=== PATIENT | male | born 1980 | race Caucasian/White ===

== ENCOUNTER 2020-04-17 14:18 | Emergency (ER) | payer SELFPAY ==
[2020-04-17 14:19] VITALS: BP 160/98; PULSE 87; RESP 16; TEMP 36.9; O2SAT 98; BMI 47.0
--- NOTE | 2020-04-17 15:02 | HMH.EDBACK ---
ED Disposition Clinical Impression: Back pain Qualifiers: Back pain location: low back pain Chronicity: acute Back pain laterality: bilateral Sciatica presence: without sciatica Qualified Code(s): M54.5 - Low back pain Disposition: Home, Self-Care Condition on Discharge: Good Instructions: DI for Low Back Pain Prescriptions: Naproxen Sodium [Naproxen 220mg Tab] 220 mg PO TID 10 Days #20 tab Naproxen Sodium [Naproxen 220mg Tab] 220 mg PO TID 10 Days #20 tab [facility]: [facility] methocarbamoL [Robaxin 750mg Tab] 750 mg PO TID PRN 5 Days #15 tab PRN Reason: Mild To Moderate Pain methocarbamoL [Robaxin 750mg Tab] 750 mg PO TID PRN 5 Days #15 tab PRN Reason: Mild Pain Transmission Status: Pending to [facility] Referrals: PCP,No [Primary Care Provider] - - Critical Care Critical Care Time: No Attestation: On 04/17/20, the high probability of a clinically significant, sudden or life threatening deterioration of the following system(s) required my full and direct attention, intervention and personal management. The time I documented below is in addition to time spent performing reported procedures but includes the following listed in this critical care notation. Medical Decision Making - Medical Records Medical records reviewed: Yes: I reviewed the patient's medical records. - Derrick Inquiry Pt receiving controlled substance: No Vital Signs: 04/17/20 14:19 Temperature 98.5 F Temperature Source Oral Pulse Rate [Right] 87 Respiratory Rate 16 Blood Pressure [Right Arm] 160/98 H Blood Pressure Mean [Right Arm] 118 Blood Pressure Source [Right Arm] Automatic Cuff Blood Pressure Position [Right Arm] Sitting 02 Sat by Pulse Oximetry 98 Oxygen Delivery Method Room Air Orders (Tests/Meds): ED MEDICATIONS Generic Name Dose Route Start Last Admin Trade Name Freq PRN Reason Stop Dose Admin Methocarbamol 1,000 mg 04/17/20 21:00 04/17/20 15:08 Methocarbamol 500mg Tablet PO 05/17/20 20:59 1,000 mg BID ALBERTO Administration Discontinued Medications Generic Name Dose Route Start Last Admin Trade Name Freq PRN Reason Stop Dose Admin Ketorolac Tromethamine 60 mg 04/17/20 14:29 04/17/20 15:08 Ketorolac 60mg/2ml Vial IM 04/17/20 14:30 60 mg ONCE ONE Administration Lidocaine 1 each 04/17/20 14:30 04/17/20 15:08 Lidocaine 5% Transdermal Patch TP 04/17/20 14:31 1 each ONCE ONE Administration Medical Decision Narrative: 39-year-old male presents with acute on chronic back pain. No concern for cauda equina syndrome, metastasis, infectious epidural abscess or traumatic injury. Neurological exam intact. No indication for x-ray per ACEP guidelines. Given Toradol, Robaxin, lidocaine patch and plan to discharge pending work-up with outpatient referral for primary care physician recommendation for physical therapy Back Pain HPI - General Chief Complaint: Back Pain/Injury Stated Complaint: back pain, old injury Time Seen by Provider: 04/17/20 14:20 Mode of Arrival: Ambulatory Limitations: No Limitations Description of Symptoms (Recalled from ER Triage Doc. by RN): PT advises he injuried his back about a year ago and has problems with bulging discs and herniated discs. woke up this am with pain in his lower back - History of Present Illness HPI Narrative: 39-year-old male with history of chronic back pain presents with worsening pain today when he tried to stand up and felt pain in his lower back. He says he has L5-S1 disc. The pain is constant nonradiating dull in nature. No numbness weakness or tingling in lower extremities and no urinary or bowel incontinence. No fever or chills. No chest pain abdominal pain headache or vomiting MD Complaint: back pain Duration: constant Location: lumbar spine Quality: dull - Related Data Previous Rx's Medication Instructions Recorded Naproxen Sodium [Naproxen 220mg 220 mg PO TID 10 Days #
[2020-04-17 15:29] VITALS: BP 180/87; PULSE 97; RESP 16; TEMP 36.9; O2SAT 98
== END 2020-04-17 15:31 | disposition home or self-care (01) ==
PROVIDERS: Emergency Provider Emergency Medicine
DX: M54.5 Low back pain (principal)
CPT/HCPCS: 96372; 99281

== ENCOUNTER 2020-04-25 21:34 | Emergency (ER) | payer OTHER, SELFPAY ==
[2020-04-25 21:44] VITALS: BP 155/94; PULSE 77; RESP 17; TEMP 36.6; O2SAT 99; BMI 43.0
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
--- NOTE | 2020-04-25 22:19 | HMH.EDLOEX ---
ED Disposition Clinical Impression: Knee internal derangement Qualifiers: Laterality: right Qualified Code(s): M23.91 - Unspecified internal derangement of right knee Disposition: Home, Self-Care Condition on Discharge: Good Instructions: DI for Knee Pain Additional Instructions: ice and nsaif and call pcp and ortho for follow up Referrals: PCP,No [Primary Care Provider] - Silas Castle MD [Staff Physician] - - Critical Care Critical Care Time: No Attestation: On 04/25/20, the high probability of a clinically significant, sudden or life threatening deterioration of the following system(s) required my full and direct attention, intervention and personal management. The time I documented below is in addition to time spent performing reported procedures but includes the following listed in this critical care notation. Medical Decision Making - Medical Records Medical records reviewed: Yes: I reviewed the patient's medical records. - Derrick Inquiry Pt receiving controlled substance: No Vital Signs: 04/25/20 21:44 Temperature 97.8 F Temperature Source Oral Pulse Rate [Right Brachial] 77 Respiratory Rate 17 Blood Pressure [Right Arm] 155/94 H Blood Pressure Mean [Right Arm] 114 Blood Pressure Source [Right Arm] Automatic Cuff Blood Pressure Position [Right Arm] Sitting 02 Sat by Pulse Oximetry 99 Oxygen Delivery Method Room Air Orders (Tests/Meds): ORDERS Category Date Time Status Knee XR right 3 views [XR knee RT 3V] Stat Exams 04/25/20 21:52 Ordered - Radiology Data #1 Image(s): Knee Image Reviewed: Yes I reviewed the patient's radiology image Preliminary Findings: No Fracture Seen Medical Decision Narrative: prob internal knee injury as he has sig finding and will refer to ortho Lower Extremity Injury HPI - General Chief Complaint: Extremity Injury, Lower Stated Complaint: injured R knee Time Seen by Provider: 04/25/20 22:00 Mode of Arrival: Family Vehicle Source of Information: Patient, Medical Record Limitations: No Limitations Description of Symptoms (Recalled from ER Triage Doc. by RN): right knee injury yesterday while walking down steps. states he felt a pop . didn't fall - History of Present Illness HPI Narrative: acute injury to rt knee yesterday as he was walking down steps with pop and medial post pain with wt bearing and movement complaint: knee injury Onset (ago): day(s) Injury: Right: knee Type of Injury: eversion Place: home Severity: moderate Context: walking Associated symptoms: snap/pop sensation Other symptoms: none - Related Data Previous Rx's Medication Instructions Recorded Naproxen Sodium [Naproxen 220mg 220 mg PO TID 10 Days #20 tab 04/17/20 Tab] Naproxen Sodium [Naproxen 220mg 220 mg PO TID 10 Days #20 tab 04/17/20 Tab] methocarbamoL [Robaxin 750mg Tab] 750 mg PO TID PRN 5 Days #15 tab 04/17/20 methocarbamoL [Robaxin 750mg Tab] 750 mg PO TID PRN 5 Days #15 tab 04/17/20 Allergies Allergy/AdvReac Type Severity Reaction Status Date / Time No Known Allergies Allergy Verified 04/17/20 15:00 [facility] History - Hepatitis A Screen Drug use history?: No High risk sexual behaviors?: No History of sexually transmitted infection?: No Currently employed?: No Childcare worker?: No Do you have indoor plumbing?: Yes Do you have electricity?: Yes Attestation statement:: This patient has been screened for Hepatitis A risk factors. I have reviewed the patient's past medical history: Yes ROS Obtained: Yes All systems reviewed & no additional complaints - Constitutional Constitutional: Denies fever(s) - Eyes Eyes: Denies change in vision - ENT Ears, Nose, Mouth, and Throat: Denies sore throat - Cardiovascular Cardiovascular: Denies chest pain - Respiratory Respiratory: Denies cough - Gastrointestinal Gastrointestingal: Denies: abdominal pain - Genitourinary Male Genitourinary: Denies hematuria - Muscu
[2020-04-25 22:36] VITALS: BP 131/75; PULSE 75; RESP 16; TEMP 36.7; O2SAT 98
== END 2020-04-25 22:40 | disposition home or self-care (01) ==
PROVIDERS: Emergency Provider Emergency Medicine
DX: M23.91 Unspecified internal derangement of right knee (principal); X50.1XXA Overexertion from prolonged static or awkward postures, initial encounter
CPT/HCPCS: 73562; 99283

== ENCOUNTER 2020-10-31 19:41 | Emergency (ER) | payer OTHER, SELFPAY ==
[2020-10-31 19:48] VITALS: BP 143/90; PULSE 89; RESP 16; TEMP 36.7; O2SAT 99; BMI 40.8
[2020-10-31 20:47] VITALS: BP 145/93; PULSE 74; RESP 20; TEMP 37.1; O2SAT 97; BMI 40.8
--- NOTE | 2020-10-31 21:17 | HMH.EDUTC ---
[facility] [place] Disposition Clinical Impression: Low back pain Qualifiers: Chronicity: unspecified Back pain laterality: right Sciatica presence: with sciatica Sciatica laterality: sciatica of right side Qualified Code(s): M54.41 - Lumbago with sciatica, right side Radiculopathy Qualifiers: Spinal region: unspecified Qualified Code(s): M54.10 - Radiculopathy, site unspecified Disposition: Home, Self-Care Condition on Discharge: Good Instructions: Low Back Pain, DI for Low Back Pain Additional Instructions: Go home and rest. It would be best if you rested tomorrow too. No heavy lifting. No twisting. Take the oral medications as directed. The muscle relaxer (cyclobenzaprine) will make you drowsy, so don't drive or operate heavy machinery after taking it. Don't start the oral steroids (medrol dose pack) until tomorrow, since you had the shots in here today. Follow up with your regular doctor. GO TO THE ER FOR ANY WORSENING SYMPTOMS OR CONCERN, ESPECIALLY BOWEL OR BLADDER ISSUES, SADDLE AREA NUMBNESS, FEVER, ETC Prescriptions: Cyclobenzaprine HCl [Cyclobenzaprine 10mg Tab] 10 mg PO BIDP PRN #20 tab PRN Reason: Muscle Spasm Transmission Status: Received by [facility] methylPREDNISolone [Medrol] 4 mg PO DIRECTED 6 Days #21 tab.ds.pk Transmission Status: Received by [facility] Referrals: Provider,Referral, [Primary Care Provider] - Forms: Work/School Release Time of Disposition: 21:30 Medical Decision Making - Medical Records Medical records reviewed: No: I reviewed the patient's medical records. - Derrick Inquiry Pt receiving controlled substance: No Vital Signs: 10/31/20 19:48 10/31/20 20:47 10/31/20 21:32 Temperature 98.1 F 98.8 F 98.8 F Temperature Source Oral Oral Pulse Rate 74 Pulse Rate [Right] 89 74 Respiratory Rate 16 20 20 Blood Pressure 145/93 H Blood Pressure [Right Arm] 143/90 H 145/93 H Blood Pressure Mean [Right Arm] 107 110 Blood Pressure Source [Right Arm] Automatic Cuff Blood Pressure Position [Right Arm] Sitting 02 Sat by Pulse Oximetry 99 97 Oxygen Delivery Method Room Air Room Air Orders (Tests/Meds): ED MEDICATIONS Discontinued Medications Generic Name Dose Route Start Last Admin Trade Name Saravanan PRN Reason Stop Dose Admin Ketorolac Tromethamine 60 mg 10/31/20 21:17 10/31/20 21:23 Ketorolac 60mg/2ml Vial IM 10/31/20 21:18 60 mg ONCE ONE Administration Methylprednisolone Sodium Succinate 125 mg 10/31/20 21:17 10/31/20 21:23 Methylprednisolone Sod Succ 125mg Vial IM 10/31/20 21:18 125 mg ONCE ONE Administration [facility] [place] HPI - General Stated complaint: back pain Time Seen by Provider: 10/31/20 20:45 Mode of Arrival: Ambulatory Source of Information: Patient Limitations: No Limitations Description of Symptoms (Recalled from Triage Doc. by RN): c/o lower back back pain, states he woke up and it was hurting. Hx of disc issues. Denies any injury HEENT Symptoms (Recalled from RN notes): No Resp Symptoms (Recalled from RN notes): No Skin Symptoms (Recalled from RN notes): No MS Symptoms (Recalled from RN notes): Yes Functional Status (Recalled from RN notes): wnl - History of Present Illness Provider Complaint: He c/o low back pain that radiates down his right leg. His pain began about 3 hours ago. He denies any recent injuries, falls, or mva. He does have episodes of this same type of pain at times. He came in to see about getting some shots to get it start feeling better. - Related Data Previous Rx's Medication Instructions Recorded Naproxen Sodium [Naproxen 220mg 220 mg PO TID 10 Days #20 tab 04/17/20 Tab] Naproxen Sodium [Naproxen 220mg 220 mg PO TID 10 Days #20 tab 04/17/20 Tab] methocarbamoL [Robaxin 750mg Tab] 750 mg PO TID PRN 5 Days #15 tab 04/17/20 methocarbamoL [Robaxin 750mg Tab] 750 mg PO TID PRN 5 Days #15 tab 04/17/20 Cyclobenzaprine HCl 10 mg PO BIDP PRN #20 tab 10/31/20 [C
[2020-10-31 21:32] VITALS: BP 145/93; PULSE 74; RESP 20; TEMP 37.1; O2SAT 97
== END 2020-10-31 21:36 | disposition home or self-care (01) ==
PROVIDERS: Emergency Provider Nurse Practitioner Family
DX: M54.41 Lumbago with sciatica, right side (principal)
CPT/HCPCS: 96372; 99202; G0463

== ENCOUNTER 2020-12-28 22:13 | Emergency (ER) | payer OTHER, SELFPAY ==
[2020-12-28 22:23] VITALS: BP 204/100; PULSE 105; RESP 18; O2SAT 98; BMI 40.1
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
[2020-12-28 23:38] VITALS: BP 163/84; PULSE 89; RESP 18; TEMP 36.8
== END 2020-12-28 23:40 | disposition home or self-care (01) ==
PROVIDERS: Emergency Provider Emergency Medicine
DX: M54.16 Radiculopathy, lumbar region (principal)
CPT/HCPCS: 99281

== ENCOUNTER → 2021-01-10 14:13 | Outpatient (CLI) | payer OTHER, SELFPAY ==
[2021-01-10 14:21] LABS: Basophils # 0.1 K/mm3 (0-0.2); Basophils % 1.6 % (0.1-2.0); Eosinophils # 0.2 K/mm3 (0.0-0.4); Eosinophils % 2.5 % (0.1-12.0); Hematocrit 51.6 % (42.0-52.0); Hemoglobin 16.8 g/dL (14.1-18.0); Lymphocytes # 1.2 K/mm3 (0.7-4.5); Lymphocytes % 17.2 % (10-50); Mean Corpuscular HGB Conc 32.6 g/dL (31.8-35.4); Mean Corpuscular Volume 92.2 fl (80-94); Mean Platelet Volume 9.3 fl (7.4-10.4); Monocytes # 1.2 K/mm3 (0.1-1.0); Monocytes % 18.2 % (1.7-9.3); Neutrophils # 4.1 K/mm3 (1.8-7.8); Neutrophils % 60.5 % (37.0-80.0); Platelet Count 241 K/mm3 (142-424); Red Blood Count 5.59 M/mm3 (4.60-6.20); Red Cell Distribution Width 13.8 % (11.5-17.5); White Blood Count 6.8 K/mm3 (4.8-10.8)
[2021-01-10 14:28] LABS: Alanine Aminotransferase 78 U/L (12-78); Albumin Level 4.3 g/dl (3.5-5.0); Albumin/Globulin Ratio 1.4 (1.1-1.8); Alkaline Phosphatase 75 U/L (38-126); Anion Gap 11.1 mEq/L (5-15); Aspartate Amino Transferase 60 U/L (17-59); Bilirubin,Total 0.3 mg/dl (0.2-1.3); Blood Urea Nitrogen 16 mg/dl (9-20); Calcium 9.6 mg/dl (8.4-10.2); Carbon Dioxide 29 mmol/L (22.0-30.0); Chloride 102 mmol/L (98-107); Chol/HDL Ratio 4.5 (1-3.5); Cholesterol 194 mg/dl (140-200); Estimated Glomerular Filt Rate 84 ml/min (>60); GFR (African American) 101 ML/MIN (>60); Globulin 3.1 g/dL (1.3-3.2); Glucose 87 mg/dl (74-100); HDL Cholesterol 43 mg/dl (40-60); Potassium 4.1 mmoL/L (3.5-5.1); Sodium 138 mmol/L (136-145); Total Protein,Serum 7.4 g/dl (6.3-8.2); Triglycerides 170 mg/dl (30-150); VLDL Cholesterol 34 mg/dL (0-40)
[2021-01-10 14:40] LABS: Direct LDL Cholesterol 115.54 mg/dL (100-129)
[2021-01-10 14:46] LABS: T4 (Thyroxine) 8.6 ug/dl (5.53-11.0)
[2021-01-10 14:47] LABS: Hemoglobin A1C 5.6 % (4.0-6.0)
== END ==
PROVIDERS: Visit Provider Nurse Practitioner Family
DX: E11.9 Type 2 diabetes mellitus without complications (principal); B19.20 Unspecified viral hepatitis C without hepatic coma; Z11.4 Encounter for screening for human immunodeficiency virus [HIV]; R74.8 Abnormal levels of other serum enzymes
CPT/HCPCS: 80053; 80061; 83036; 84436; 84443; 85025

== ENCOUNTER 2021-01-15 12:11 | Emergency (ER) | payer OTHER, SELFPAY ==
[2021-01-15 12:12] VITALS: BP 131/95; PULSE 92; RESP 20; TEMP 36.6; O2SAT 97; BMI 38.7
--- NOTE | 2021-01-15 12:36 | CT_ITS ---
PROCEDURE INFORMATION: Exam: CT Abdomen And Pelvis With Contrast Exam date and time: 01/15/2021 12:36 PM Age: 40 years old Clinical indication: Abdominal pain; Acute; Prior surgery; Surgery date: 6+ months; Surgery type: Gb; Additional info: Diarrhea, blood in stool TECHNIQUE: Imaging protocol: Computed tomography of the abdomen and pelvis with contrast. Radiation optimization: All CT scans at this facility use at least one of these dose optimization techniques: automated exposure control; mA and/or kV adjustment per patient size (includes targeted exams where dose is matched to clinical indication); or iterative reconstruction. Contrast material: ISOVUE; Contrast volume: 75 ml; Contrast route: IV; COMPARISON: No relevant prior studies available. FINDINGS: Lungs: Minimal opacities in the right middle lobe and right lower lobe may represent atelectasis or pneumonia.. Liver: Normal. No mass. Gallbladder and bile ducts: Cholecystectomy Pancreas: Normal. No ductal dilation. Spleen: Normal. No splenomegaly. Adrenal glands: Normal. No mass. Kidneys and ureters: There is no evidence of renal or ureteral calcifications. Stomach and bowel: Unremarkable. No obstruction. No mucosal thickening. Appendix: Normal appendix Intraperitoneal space: Unremarkable. No free air. No significant fluid collection. Vasculature: Unremarkable. No abdominal aortic aneurysm. Lymph nodes: Unremarkable. No enlarged lymph nodes. Urinary bladder: Unremarkable as visualized. Reproductive: Unremarkable as visualized. Bones/joints: Unremarkable. No acute fracture. Soft tissues: Unremarkable. IMPRESSION: Minimal opacities in the right middle lobe and right lower lobe may represent atelectasis or pneumonia..
[2021-01-15 12:50] LABS: Basophils # 0.1 K/mm3 (0-0.2); Basophils % 1.1 % (0.1-2.0); Eosinophils # 0.1 K/mm3 (0.0-0.4); Eosinophils % 1.2 % (0.1-12.0); Hematocrit 54.4 % (42.0-52.0); Lymphocytes # 1.7 K/mm3 (0.7-4.5); Lymphocytes % 18.7 % (10-50); Mean Corpuscular HGB Conc 33.5 g/dL (31.8-35.4); Mean Corpuscular Hemoglobin 30.1 pg (27.0-31.2); Mean Platelet Volume 8.7 fl (7.4-10.4); Monocytes # 0.5 K/mm3 (0.1-1.0); Monocytes % 4.9 % (1.7-9.3); Neutrophils # 6.9 K/mm3 (1.8-7.8); Neutrophils % 74.2 % (37.0-80.0); Platelet Count 201 K/mm3 (142-424); Red Blood Count 6.04 M/mm3 (4.60-6.20); Red Cell Distribution Width 13.5 % (11.5-17.5); White Blood Count 9.3 K/mm3 (4.8-10.8)
[2021-01-15 12:54] LABS: Alanine Aminotransferase 90 U/L (12-78); Albumin Level 4.6 g/dl (3.5-5.0); Albumin/Globulin Ratio 1.2 (1.1-1.8); Alkaline Phosphatase 77 U/L (38-126); Anion Gap 11.3 mEq/L (5-15); Aspartate Amino Transferase 47 U/L (17-59); Bilirubin,Total 0.6 mg/dl (0.2-1.3); Blood Urea Nitrogen 5 mg/dl (9-20); Calcium 9.3 mg/dl (8.4-10.2); Carbon Dioxide 29 mmol/L (22.0-30.0); Chloride 103 mmol/L (98-107); Creatinine Clearance Estimated 217 mL/min (50-200); Estimated Glomerular Filt Rate 108 ml/min (>60); GFR (African American) 131 ML/MIN (>60); Globulin 3.7 g/dL (1.3-3.2); Glucose 140 mg/dl (74-100); Lipase 116 U/L (23-300); Potassium 4.3 mmoL/L (3.5-5.1); Sodium 139 mmol/L (136-145); Total Protein,Serum 8.3 g/dl (6.3-8.2)
[2021-01-15 13:01] LABS: Hemoglobin 18.3 g/dL (14.1-18.0)
--- NOTE | 2021-01-15 13:05 | HMH.EDGENADL ---
ED Disposition Clinical Impression: External hemorrhoid, bleeding Disposition: Home Health Service Condition on Discharge: Good Instructions: DI for Hemorrhoids Prescriptions: Hydrocortisone [Anusol-Hc] 1 applicatio TP BID #30 gm Transmission Status: Pending to [facility] Referrals: Jacinto Mota MD [Primary Care Provider] - - Critical Care Critical Care Time: No Attestation: On 01/15/21, the high probability of a clinically significant, sudden or life threatening deterioration of the following system(s) required my full and direct attention, intervention and personal management. The time I documented below is in addition to time spent performing reported procedures but includes the following listed in this critical care notation. Medical Decision Making - Medical Records Medical records reviewed: Yes: I reviewed the patient's medical records. - Derrick Inquiry Pt receiving controlled substance: No Vital Signs: 01/15/21 12:12 Temperature 97.9 F Temperature Source Oral Pulse Rate [Left Radial] 92 H Respiratory Rate 20 Blood Pressure [Right Arm] 131/95 H Blood Pressure Mean [Right Arm] 107 Blood Pressure Source [Right Arm] Automatic Cuff Blood Pressure Position [Right Arm] Sitting 02 Sat by Pulse Oximetry 97 Oxygen Delivery Method Room Air - Lab Data Lab Results 01/15/21 12:39: WBC 9.3, RBC 6.04, Hgb 18.3 H, Hct 54.4 H, MCV 90.0, MCH 30.1, MCHC 33.5, RDW 13.5, Plt Count 201, MPV 8.7, Neut % (Auto) 74.2, Lymph % (Auto) 18.7, Weld % (Auto) 4.9, Eos % (Auto) 1.2, Baso % (Auto) 1.1, Neut # (Auto) 6.9, Lymph # (Auto) 1.7, Weld # (Auto) 0.5, Eos # (Auto) 0.1, Baso # (Auto) 0.1 01/15/21 12:39: Sodium 139, Potassium 4.3, Chloride 103, Carbon Dioxide 29, Anion Gap 11.3, BUN 5 L, Creatinine 0.80, Estimated Creat Clear 217, Estimated GFR 108, Est GFR ( Amer) 131, Glucose 140 H, Calcium 9.3, Total Bilirubin 0.6, AST 47, ALT 90 H, Alkaline Phosphatase 77, Total Protein 8.3 H, Albumin 4.6, Globulin 3.7 H, Albumin/Globulin Ratio 1.2, Lipase 116 Result diagrams: 01/15/21 12:39 01/15/21 12:39 Orders (Tests/Meds): ED MEDICATIONS Discontinued Medications Generic Name Dose Route Start Last Admin Trade Name Marioq PRN Reason Stop Dose Admin Sodium Chloride 1,000 mls @ 999 mls/hr 01/15/21 12:45 01/15/21 12:43 Sod Chlor 0.9% 1000ml Bag IV 01/15/21 13:45 999 mls/hr .Q1H1M ALBERTO Administration Iopamidol 75 ml 01/15/21 13:20 01/15/21 13:21 Iopamidol-370 (76%);100ml Bottle IV 01/15/21 13:21 75 ml ONCE ONE Administration Ondansetron HCl 4 mg 01/15/21 12:37 01/15/21 12:43 Ondansetron 4mg/2ml Vial IV 01/15/21 12:38 4 mg ONCE ONE Administration Sodium Chloride 10 ml 01/15/21 13:20 01/15/21 13:21 Sodium Chloride 0.9% 10ml Syr (Rad Only) IV 01/15/21 13:21 10 ml ONCE ONE Administration - CT Data CT Scan: Abdomen, Pelvis Time Received: 14:[address] Reviewed: Yes: I have reviewed the patient's CT results, I have viewed the radiologist's interpretation Preliminary Findings: Normal/NAD - Reevaluation(s) Time: 14:44 Reevaluation #1: On reevaluation, the patient is feeling better. There is no active bleeding. Patient janusz hemodynamically stable. Hemoglobin normal. CT was unremarkable. Rectal exam did show one small hemorrhoid. Likely causing the patient's symptoms. Patient be given surgery follow-up. Given strict return precautions. Verbalized understanding. Medical Decision Narrative: 40-year-old male presented to the emergency department with some lower back pain and bloody diarrhea. Patient symptoms are concerning for possible inflammatory bowel disease. Patient's abdominal examination is relatively benign. CT will be obtained. General Adult HPI - General Chief complaint: Nausea/Vomiting/Diarrhea Stated complaint: bloody stool Time Seen by Provider: 01/15/21 12:20 Mode of Arrival: Ambulatory Limitations: No Limitations Descriptio
[2021-01-15 14:55] VITALS: BP 141/92; PULSE 63; RESP 20; TEMP 36.6; O2SAT 98
== END 2021-01-15 14:57 | disposition home health service (06) ==
PROVIDERS: Emergency Provider Emergency Medicine; PCP Emergency Medicine
DX: K64.4 Residual hemorrhoidal skin tags (principal)
CPT/HCPCS: 74177; 80053; 83690; 85025; 96365; 96375; 99282; J2405; Q9967

== ENCOUNTER → 2021-01-27 09:47 | Outpatient (CLI) | payer OTHER, SELFPAY | PROVIDERS: PCP Nurse Practitioner Family; Visit Provider Nurse Practitioner Family | DX: G47.33 Obstructive sleep apnea (adult) (pediatric) (principal) | CPT/HCPCS: 95806 ==

== ENCOUNTER → 2021-04-24 08:31 | Outpatient (CLI) | payer OTHER, SELFPAY ==
--- NOTE | 2021-04-24 08:37 | XR_ITS ---
FINAL REPORT CLINICAL HISTORY: RT knee pain COMPARISON: April 25, 2020 FINDINGS: RIGHT KNEE 6 views of the right knee were obtained. There is no acute fracture or dislocation. There are mild degenerative changes. There is a chronic irregularity of the lateral femoral condyle which could represent a chronic osteochondral lesion. IMPRESSION: Chronic irregularity of the lateral femoral condyle, could represent a chronic osteochondral lesion. If indicated, MRI could further evaluate. Reviewed, Interpreted and Dictated by Claudio Cunningham III, MD Transcribed by Jenny Flaherty Authenticated by Claudio Cunningham III, MD on 04/24/2021 09:25:13 AM [facility]
== END ==
PROVIDERS: PCP Nurse Practitioner Family; Visit Provider Orthopaedic Surgery
DX: M25.561 Pain in right knee (principal)
CPT/HCPCS: 73564

== ENCOUNTER → 2021-05-02 10:07 | Outpatient (CLI) | payer OTHER, SELFPAY ==
--- NOTE | 2021-05-02 10:07 | MR_ITS ---
FINAL REPORT CLINICAL HISTORY: evaluate for a meniscal tear FINDINGS: Multi planar MR imaging was performed of the right knee. The anterior cruciate ligament is intact but there is diffuse edema throughout the anterior cruciate ligament. The posterior cruciate ligament is intact. The quadriceps and patellar tendons are intact. There is a full-thickness tear of the posterior horn of the medial meniscus. The lateral meniscus is intact. Small joint effusion is identified. The medial and lateral collateral ligaments appear intact. The medial and lateral retinacula appear intact. There is no evidence of bone marrow edema or osteochondral defect. No evidence of soft tissue inflammatory reaction. IMPRESSION: Edema along the course of the anterior cruciate ligament, possibly due to strain. Full-thickness tear posterior horn medial meniscus. Reviewed, Interpreted and Dictated by Primitivo Perry MD Transcribed by Concetta Caceres Authenticated by Primitivo Perry MD on 05/02/2021 12:57:47 PM [facility]
== END ==
PROVIDERS: PCP Nurse Practitioner Family; Visit Provider Orthopaedic Surgery
DX: M25.561 Pain in right knee (principal); G89.29 Other chronic pain
CPT/HCPCS: 73721

== ENCOUNTER 2021-05-31 10:15 | Emergency (ER) | payer OTHER, SELFPAY ==
[2021-05-31] VITALS (7 sets, daily range): BP systolic 130–156; BP diastolic 74–97; PULSE 72–90; RESP 16; TEMP 36.6–36.8; O2SAT 98; BMI 39.5
[2021-05-31 11:04] LABS: Microscopic, Urine URINE MICROSCOPIC (MICROSCOPIC)
[2021-05-31 11:05] LABS: Basophils % 0.5 % (0.1-2.0); Eosinophils # 0.2 K/mm3 (0.0-0.4); Eosinophils % 2.3 % (0.1-12.0); Hematocrit 52.6 % (42.0-52.0); Lymphocytes # 1.1 K/mm3 (0.7-4.5); Lymphocytes % 13.2 % (10-50); Mean Corpuscular HGB Conc 34.6 g/dL (31.8-35.4); Mean Corpuscular Hemoglobin 29.9 pg (27.0-31.2); Mean Corpuscular Volume 86.4 fl (80-94); Mean Platelet Volume 7.9 fl (7.4-10.4); Monocytes # 0.6 K/mm3 (0.1-1.0); Monocytes % 7.1 % (1.7-9.3); Neutrophils # 6.1 K/mm3 (1.8-7.8); Neutrophils % 76.9 % (37.0-80.0); Platelet Count 204 K/mm3 (142-424); Red Blood Count 6.09 M/mm3 (4.60-6.20); Red Cell Distribution Width 13.6 % (11.5-17.5)
[2021-05-31 11:06] LABS: Chloride 99 mmol/L (98-107); Potassium 3.7 mmoL/L (3.5-5.1); Sodium 132 mmol/L (136-145)
[2021-05-31 11:07] LABS: Hemoglobin 18.2 g/dL (14.1-18.0)
[2021-05-31 11:07] LABS: Occult Blood,Stool Positive (Negative)
[2021-05-31 11:07] LABS: Appearance,Urine SL CLOUDY (Clear); Bilirubin,Urine Negative (Negative); Blood, Urine TRACE-I (Negative); Color,Urine YELLOW (Yellow); Glucose,Urine (UA) Negative (Negative); Ketones,Urine Negative (Negative); Leukocyte Esterase,Urine Negative (Negative); Nitrate,Urine Negative (Negative); Protein,Urine 1+ (Negative); Specific Gravity, Urine >= 1.030 (1.005-1.030); Urobilinogen,Urine 0.2 EU/dl (0.2)
[2021-05-31 11:09] LABS: Alanine Aminotransferase 53 U/L (12-78); Albumin Level 4.7 g/dl (3.5-5.0); Albumin/Globulin Ratio 1.3 (1.1-1.8); Alkaline Phosphatase 83 U/L (38-126); Anion Gap 13.7 mEq/L (5-15); Aspartate Amino Transferase 47 U/L (17-59); Bilirubin,Total 0.6 mg/dl (0.2-1.3); Blood Urea Nitrogen 15 mg/dl (9-20); Calcium 8.5 mg/dl (8.4-10.2); Carbon Dioxide 23 mmol/L (22.0-30.0); Creatinine Clearance Estimated 167 mL/min (50-200); Estimated Glomerular Filt Rate 84 ml/min (>60); GFR (African American) 101 ML/MIN (>60); Globulin 3.5 g/dL (1.3-3.2); Glucose 101 mg/dl (74-100); Lipase 68 U/L (23-300); Total Protein,Serum 8.2 g/dl (6.3-8.2)
[2021-05-31 11:21] LABS: Bacteria,Urine 2+ /lpf; Mucus,Urine 2+ /lpf; RBC,Urine Occasional #/hpf (0-3)
--- NOTE | 2021-05-31 11:22 | HMH.EDGENADL ---
ED Disposition Clinical Impression: Rotavirus enteritis, Rectal bleeding Disposition: Home, Self-Care Condition on Discharge: Good Instructions: DI for Diarrhea and Traveler's Diarrhea -- Adult, DI for Rotavirus -- Adult Additional Instructions: Loperamide as needed for diarrhea. Zofran as needed for nausea and vomiting. Rest and drink plenty of fluids. Off work until Friday. Additional instructions for VOMITING/DIARRHEA: See your physician as soon as possible for further evaluation. Return immediately if severe abdominal pain, uncontrollable vomiting, shortness of breath, fever, vomiting of blood or abdominal distention. Prescriptions: Loperamide HCl [Loperamide] 2 mg PO TIDP PRN #10 tab PRN Reason: Diarrhea [facility] Ondansetron [Zofran 4mg ODT] 4 mg PO TIDP PRN #10 tab PRN Reason: Nausea And Vomiting Transmission Status: Pending to [facility] Referrals: Arsh Gongora APRN [Primary Care Provider] - Forms: Work/School Release - Critical Care Critical Care Time: No Attestation: On 05/31/21, the high probability of a clinically significant, sudden or life threatening deterioration of the following system(s) required my full and direct attention, intervention and personal management. The time I documented below is in addition to time spent performing reported procedures but includes the following listed in this critical care notation. Medical Decision Making - Medical Records Medical records reviewed: Yes: I reviewed the patient's medical records. MR Comment: Reviewed emergency department note from 01/16/2021. Seen for similar symptoms. Work-up unremarkable. Head CT scan performed which was unremarkable. He states he has not followed up with anybody since then and symptoms have not recurred. - Derrick Inquiry Pt receiving controlled substance: No Vital Signs: 05/31/21 10:40 05/31/21 11:30 05/31/21 12:00 Temperature 98.3 F Temperature Source Oral Pulse Rate 81 74 Pulse Rate [Right Radial] 90 Respiratory Rate 16 Blood Pressure 143/96 H 149/92 H Blood Pressure [Right Arm] 147/97 H Blood Pressure Mean 111 103 Blood Pressure Mean [Right Arm] 113 Blood Pressure Source [Right Arm] Automatic Cuff Blood Pressure Position [Right Arm] Sitting 02 Sat by Pulse Oximetry 98 Oxygen Delivery Method Room Air 05/31/21 12:30 05/31/21 13:00 05/31/21 13:30 Temperature Temperature Source Pulse Rate 72 81 Pulse Rate [Right Radial] Respiratory Rate Blood Pressure 148/96 H 156/96 H 153/95 H Blood Pressure [Right Arm] Blood Pressure Mean 113 110 113 Blood Pressure Mean [Right Arm] Blood Pressure Source [Right Arm] Blood Pressure Position [Right Arm] 02 Sat by Pulse Oximetry Oxygen Delivery Method - Lab Data Lab Results 05/31/21 10:50: WBC 8.0, RBC 6.09, Hgb 18.2 H, Hct 52.6 H, MCV 86.4, MCH 29.9, MCHC 34.6, RDW 13.6, Plt Count 204, MPV 7.9, Neut % (Auto) 76.9, Lymph % (Auto) 13.2, [place] % (Auto) 7.1, Eos % (Auto) 2.3, Baso % (Auto) 0.5, Neut # (Auto) 6.1, Lymph # (Auto) 1.1, [place] # (Auto) 0.6, Eos # (Auto) 0.2, Baso # (Auto) 0.0 05/31/21 10:50: Sodium 132 L, Potassium 3.7, Chloride 99, Carbon Dioxide 23, Anion Gap 13.7, BUN 15, Creatinine 1.00, Estimated Creat Clear 167, Estimated GFR 84, Est GFR ( Amer) 101, Glucose 101 H, Calcium 8.5, Total Bilirubin 0.6, AST 47, ALT 53, Alkaline Phosphatase 83, Total Protein 8.2, Albumin 4.7, Globulin 3.5 H, Albumin/Globulin Ratio 1.3, Lipase 68 05/31/21 10:54: Stool Occult Blood Positive A 05/31/21 11:00: Urine Color Yellow, Urine Appearance Sl cloudy, Urine pH 6.0, Ur Specific [place] >= 1.030, Urine Protein 1+, Urine Glucose (UA) Negative, Urine Ketones Negative, Urine Blood Trace-i, Urine Nitrate Negative, Urine Bilirubin Negative, Urine Urobilinogen 0.2, Ur Leukocyte Esterase Negative, Urine RBC Occasional, Urine WBC 5-10, Ur Squamous Epith Cells 3-5, Ur
[2021-05-31 11:48] LABS: Campylobacter Not Detected (NotDetected); Clostridium Difficile A/B, PCR Not Detected (NotDetected)
[2021-05-31 11:49] LABS: Adenovirus F 40/41, stool Not Detected (NotDetected); Astrovirus Not Detected (NotDetected); Cryptosporidium Not Detected (NotDetected); Cyclospora Cayetanesis Not Detected (NotDetected); Entamoeba histolytica Not Detected (NotDetected); Enteroaggregative E coli Not Detected (NotDetected); Enteropathogenic E coli Not Detected (NotDetected); Enterotoxigenic E coli Not Detected (NotDetected); Giardia lamblia Not Detected (NotDetected); Norovirus Not Detected (NotDetected); Plesimonas Shigalloides, PCR Not Detected (NotDetected); Salmonella, PCR Not Detected (NotDetected); Sapovirus Not Detected (NotDetected); Shiga-like toxin E coli Not Detected (NotDetected); Shigella Enterovasive E coli Not Detected (NotDetected); Vibrio Cholerae Not Detected (NotDetected); Vibrio, PCR Not Detected (NotDetected); Yersinia Entercolitica, PCR Not Detected (NotDetected)
[2021-05-31 13:48] LABS: Rotavirus A Detected (NotDetected)
--- NOTE | 2021-05-31 13:52 | PC.NURSE ---
MD at bedside for update on POC
== END 2021-05-31 14:13 | disposition home or self-care (01) ==
PROVIDERS: Emergency Provider Emergency Medicine; PCP Nurse Practitioner Family
DX: A08.0 Rotaviral enteritis (principal); K62.5 Hemorrhage of anus and rectum; K64.9 Unspecified hemorrhoids
CPT/HCPCS: 80053; 81001; 82272; 83690; 85025; 87086; 87506; 96365; 96375; 99283; 99284; G0328

== ENCOUNTER 2021-10-10 16:34 | Emergency (ER) | payer OTHER, SELFPAY ==
[2021-10-10 16:35] VITALS: BP 167/111; PULSE 86; RESP 16; TEMP 36.9; O2SAT 98; BMI 40.6
--- NOTE | 2021-10-10 17:12 | CT_ITS ---
PROCEDURE INFORMATION: Exam: CT Thoracic Spine Without Contrast Exam date and time: 10/10/21 05:16 PM Age: 41 years old Clinical indication: Pain in thoracic spine; Additional info: Back pain, known disc herniation and buldging TECHNIQUE: Imaging protocol: Computed tomography of the thoracic spine without contrast. Radiation optimization: All CT scans at this facility use at least one of these dose optimization techniques: automated exposure control; mA and/or kV adjustment per patient size (includes targeted exams where dose is matched to clinical indication); or iterative reconstruction. COMPARISON: CT ABDOMEN PELVIS W CON 01/15/21 01:16 PM FINDINGS: Bones/joints: Degenerative changes. No acute fracture. Normal alignment. Discs/Spinal canal/Neural foramina: No significant disc protrusion. No severe spinal canal stenosis. No significant neural foraminal narrowing. Soft tissues: Unremarkable. IMPRESSION: Unremarkable CT T-Spine.
--- NOTE | 2021-10-10 17:12 | CT_ITS ---
PROCEDURE INFORMATION: Exam: CT Lumbar Spine Without Contrast Exam date and time: 10/10/21 05:26 PM Age: 41 years old Clinical indication: Low back pain; Additional info: Back pain, known disc herniation and buldging TECHNIQUE: Imaging protocol: Computed tomography of the lumbar spine without contrast. Radiation optimization: All CT scans at this facility use at least one of these dose optimization techniques: automated exposure control; mA and/or kV adjustment per patient size (includes targeted exams where dose is matched to clinical indication); or iterative reconstruction. COMPARISON: CT THORACIC SPINE WO CON 10/10/21 05:16 PM FINDINGS: Bones/joints: No acute fracture. Normal alignment. L1-L2: No significant disc protrusion. No severe spinal canal stenosis. No significant neural foraminal narrowing. L2-L3: No significant disc protrusion. No severe spinal canal stenosis. No significant neural foraminal narrowing. L3-L4: No significant disc protrusion. No severe spinal canal stenosis. No significant neural foraminal narrowing. L4-L5: Large central disc protrusion L4-L5. Moderate spinal canal stenosis. Consider further characterization with lumbar MR imaging. L5-S1: No significant disc protrusion. No severe spinal canal stenosis. No significant neural foraminal narrowing. Soft tissues: Unremarkable. IMPRESSION: 1. Large central disc protrusion L4-L5. 2. Moderate spinal canal stenosis. Consider further characterization with lumbar MR imaging.
--- NOTE | 2021-10-10 17:13 | PC.NURSE ---
Notified rad of CT
--- NOTE | 2021-10-10 17:17 | PC.NURSE ---
pt to radiology via wheelchair with geological technical officer
--- NOTE | 2021-10-10 17:37 | PC.NURSE ---
Pt returned from rad
--- NOTE | 2021-10-10 17:58 | HMH.EDGENADL ---
ED Disposition Clinical Impression: Lumbar disc herniation Disposition: Home, Self-Care Condition on Discharge: Good Instructions: DI for Low Back Pain Additional Instructions: Clif[place] as needed for pain. Prednisone as prescribed. Additional instructions for BACK PAIN: See your physician as soon as possible for further evaluation. Return immediately if back pain becomes intolerable, or if fever, numbness or weakness of your legs, loss of control of your bowels or bladder. Additional instructions regarding BLOOD PRESSURE: One or more of your blood pressure readings elevated today. Please contact your primary care physician for further evaluation or treatment of your blood pressure. Additional instructions for CONTROLLED SUBSTANCES: You have been prescribed a medication that is a controlled substance. Controlled substances include pain medications known as opiates and sedative nerve medications known as benzodiazepines. Tramadol, fioricet, and gabapentin are also controlled substances. Some common opiates include: Codeine (such as Tylenol #3) Hydrocodone (Vicodin, Lortab, Lorcet, Clifton) Oxycodone (Percocet, Percodan, Oxycodone, Oxy IR) Some common benzodiazepines include: Diazepam (Valium) Lorazepam (Ativan) Alprazolam (Xanax) Clonazepam (Klonopin) Oxazepam (Serax) All of these controlled substances are highly addictive and frequently abused. Misuse can and frequently does lead to addiction as well as overdose and . Medication should be stored in a locked cabinet or other secure storage unit. Do not store the medication in a motor vehicle. Short term supplies, 3 days or less, are prescribed because of the highly addictive nature of the medication. Any of the controlled substance medication NOT taken should be disposed of properly and NOT SAVED. The recommended method of disposing of unused medications is: Place the medicines in a sealable plastic bag. If the medicine is a solid, crush it or add water to dissolve it. Add something undesirable (cat litter, coffee grounds, etc.) Dispose of sealed bag in household trash Do not flush or pour unused medicines down a sink or drain. Controlled substances should not be shared, given away or sold. Because of the addictive nature and frequent abuse, these medications are sometimes stolen. These medications should be kept in a safe place where they cannot be stolen. Do not keep them in your car or purse. Lost or stolen prescriptions for controlled substances WILL NOT BE REFILLED in this emergency department, regardless of whether a police report was filed. Prescriptions: Hydrocod/Acet 5/325 mg [Clif[place] 5/325mg tablet] 1 tab PO Q6HP PRN #10 tab PRN Reason: Pain Transmission Status: Sent to [facility] predniSONE [Prednisone 20mg Tab] 20 mg PO BID #10 tab Transmission Status: Pending to [facility] Referrals: Jacinto Mota MD [Primary Care Provider] - - Critical Care Critical Care Time: No Attestation: On 10/10/21, the high probability of a clinically significant, sudden or life threatening deterioration of the following system(s) required my full and direct attention, intervention and personal management. The time I documented below is in addition to time spent performing reported procedures but includes the following listed in this critical care notation. Medical Decision Making - Derrick Inquiry Pt receiving controlled substance: Yes Derrick was queried for this patient: Yes Risks and benefits of using a controlled substance: were discussed with pt by me Vital Signs: 10/10/21 16:35 Temperature 98.4 F Temperature Source Oral Pulse Rate [Right Radial] 86 Respiratory Rate 16 Blood Pressure [Right Arm] 167/111 H Blood Pressure Mean [Right Arm] 129 Blood Pressure Source [Right Arm] Automatic Cuff Blood Pressure Position [Right Arm] Sitting 02 Sat by Pulse Oximetry 98 Oxygen Delivery Method Room
[2021-10-10 18:13] VITALS: BP 156/111; PULSE 79; RESP 17; TEMP 36.8; O2SAT 96
== END 2021-10-10 18:18 | disposition home or self-care (01) ==
PROVIDERS: Emergency Provider Emergency Medicine; PCP Emergency Medicine
DX: M51.26 Other intervertebral disc displacement, lumbar region (principal); I10 Essential (primary) hypertension; Z91.14 Patient's other noncompliance with medication regimen
CPT/HCPCS: 72128; 72131; 96372; 99284

== ENCOUNTER 2022-07-01 04:59 | Emergency (ER) | payer OTHER, SELFPAY ==
[2022-07-01 05:00] VITALS: BP 165/121; PULSE 84; RESP 15; TEMP 36.8; O2SAT 97; BMI 41.5
--- NOTE | 2022-07-01 05:15 | CT_ITS ---
PROCEDURE INFORMATION: Exam: CT Head Without Contrast Exam date and time: 07/01/2022 5:24 AM Age: 41 years old Clinical indication: Numbness / parasthesia; Additional info: Bilateral arm numbness TECHNIQUE: Imaging protocol: Computed tomography of the head without contrast. Radiation optimization: All CT scans at this facility use at least one of these dose optimization techniques: automated exposure control; mA and/or kV adjustment per patient size (includes targeted exams where dose is matched to clinical indication); or iterative reconstruction. REPORTING DATA: Count of CT and Cardiac NM exams in prior 12 months: This patient has received 3 known CTs and 0 known cardiac nuclear medicine studies in the 12 months prior to the current study. COMPARISON: No relevant prior studies available. FINDINGS: Brain: There is a low attenuation region in the left basal ganglia (series 3, image 33) which could be secondary to perivascular space but limits assessment for a subacute or chronic nonhemorrhagic basal ganglia infarction. There is no acute parenchymal hemorrhage or mass effect. Cerebral ventricles: No ventriculomegaly. Paranasal sinuses: Visualized sinuses are unremarkable. No fluid levels. Mastoid air cells: Visualized mastoid air cells are well aerated. Bones/joints: No acute fracture. Soft tissues: Unremarkable. IMPRESSION: 1. There is a low attenuation region in the left basal ganglia (series 3, image 33) which could be secondary to perivascular space but limits assessment for a subacute or chronic nonhemorrhagic basal ganglia infarction. 2. If an acute infarction is suspected, further imaging may be indicated.
--- NOTE | 2022-07-01 05:15 | CT_ITS ---
PROCEDURE INFORMATION: Exam: CT Cervical Spine Without Contrast Exam date and time: 07/01/2022 5:27 AM Age: 41 years old Clinical indication: Radicular pain (radiculopathy); Location of radicular pain not specified; Additional info: Bilateral arm numbness TECHNIQUE: Imaging protocol: Computed tomography of the cervical spine without contrast. Radiation optimization: All CT scans at this facility use at least one of these dose optimization techniques: automated exposure control; mA and/or kV adjustment per patient size (includes targeted exams where dose is matched to clinical indication); or iterative reconstruction. REPORTING DATA: Count of CT and Cardiac NM exams in prior 12 months: This patient has received 3 known CTs and 0 known cardiac nuclear medicine studies in the 12 months prior to the current study. COMPARISON: CT HEAD/BRAIN WO CON 07/01/2022 5:24 AM FINDINGS: Bones/joints: Straightening of the normal cervical lordosis may be related to patient position or due to muscle spasm. There is no acute fracture. Streak artifact of the patient's shoulders limits assessment of the lower cervical spine. Lungs: Lung apices are normal. Soft tissues: There is no prevertebral soft tissue swelling. IMPRESSION: 1. Straightening of the normal cervical lordosis may be related to patient position or due to muscle spasm. 2. There is no disc herniation or central stenosis demonstrated, but streak artifact from the patient's shoulders limits evaluation of the lower cervical spine. If radicular or myelopathic symptoms are suspected, a follow-up MRI is recommended.
[2022-07-01 05:28] LABS: Basophils # 0.2 K/mm3 (0-0.2); Basophils % 2.3 % (0.1-2.0); Eosinophils # 0.5 K/mm3 (0.0-0.4); Eosinophils % 6.1 % (0.1-12.0); Hematocrit 51.1 % (42.0-52.0); Hemoglobin 16.6 g/dL (14.1-18.0); Lymphocytes % 34.8 % (10-50); Mean Corpuscular HGB Conc 32.5 g/dL (31.8-35.4); Mean Corpuscular Hemoglobin 28.5 pg (27.0-31.2); Mean Corpuscular Volume 87.6 fl (80-94); Mean Platelet Volume 8.3 fl (7.4-10.4); Monocytes # 0.7 K/mm3 (0.1-1.0); Monocytes % 8.4 % (1.7-9.3); Neutrophils # 4.1 K/mm3 (1.8-7.8); Neutrophils % 48.5 % (37.0-80.0); Platelet Count 245 K/mm3 (142-424); Red Blood Count 5.83 M/mm3 (4.60-6.20); Red Cell Distribution Width 13.6 % (11.5-17.5); White Blood Count 8.5 K/mm3 (4.8-10.8)
[2022-07-01 05:29] LABS: Chloride 103 mmol/L (98-107); Sodium 137 mmol/L (136-145)
[2022-07-01 05:30] LABS: Potassium 3.9 mmoL/L (3.5-5.1)
[2022-07-01 05:32] LABS: Alanine Aminotransferase 73 U/L (12-78); Albumin Level 4.5 g/dl (3.5-5.0); Albumin/Globulin Ratio 1.3 (1.1-1.8); Alkaline Phosphatase 113 U/L (38-126); Anion Gap 10.9 mEq/L (5-15); Aspartate Amino Transferase 51 U/L (17-59); Bilirubin,Total 0.4 mg/dl (0.2-1.3); Blood Urea Nitrogen 16 mg/dl (9-20); Calcium 8.8 mg/dl (8.4-10.2); Carbon Dioxide 27 mmol/L (22.0-30.0); Creatinine Clearance Estimated 128 mL/min (50-200); Estimated Glomerular Filt Rate 108 ml/min (>60); GFR (African American) 130 ML/MIN (>60); Globulin 3.5 g/dL (1.3-3.2); Glucose 109 mg/dl (74-100)
[2022-07-01 05:33] LABS: Magnesium 2.1 mg/dl (1.6-2.3)
--- NOTE | 2022-07-01 06:43 | HMH.EDEXTP ---
Discharge Plan Disposition Patient Disposition: Home, Self-Care Chief Complaint: Extremity Problem,Nontraumatic Prescriptions Prescriptions: No Action loperamide 2 MG tablet 2 mg PO TIDP PRN (Reason: Diarrhea) Qty: 10 0RF ondansetron 4 MG tablet,disintegrating 4 mg PO TIDP PRN (Reason: Nausea And Vomiting) Qty: 10 0RF hydrocodone-acetaminophen 1 TAB tablet 1 tab PO Q6HP PRN (Reason: Pain) Qty: 10 0RF prednisone 20 MG tablet 20 mg PO BID Qty: 10 0RF Referrals Follow up/Referrals: Provider,Referral, MD [Primary Care Provider] - See instructions Clinical Impressions Clinical Impression: Paresthesia and pain of both upper extremities, HTN (hypertension) Instructions Patient Instructions: DI for Numbness/Tingling Discharge ED Provider: Svetlana (ED)Jacinto Extremity Problem HPI General Chief complaint: Extremity Problem,Nontraumatic Stated complaint: Bilateral tingling from elbows down to hands x2wks Time Seen by Provider: 07/01/22 06:35 Mode of Arrival: Ambulatory Source of Information: Patient Limitations: No Limitations Description of Symptoms (Recalled from ER Triage Doc. by RN): Pt arrives to ED with c/o BUE tingling from his elbows to fingertips that started approx 2-3 weeks ago. Pt states it usually occurs in the morning when he first wakes up, but intermittently occurs throughout the day. History of Present Illness HPI Narrative: pt has bilat tingling over the past 2 weeks w/o trauma - more in am -no motor and has elevated bp Complaint: other (tingling ) Onset (ago): week(s) Consistency: intermittent Location: upper extremity Radiation: distal Associated symptoms: denies other symptoms Related Data Previous Rx's Medication Instructions Recorded loperamide 2 mg tablet 2 mg PO TIDP PRN Diarrhea #10 tabs 05/31/21 ondansetron 4 mg disintegrating 4 mg PO TIDP PRN Nausea And 05/31/21 tablet Vomiting #10 tabs hydrocodone 5 mg-acetaminophen 325 1 tab PO Q6HP PRN Pain #10 tabs 10/10/21 mg tablet prednisone 20 mg tablet 20 mg PO BID #10 tabs 10/10/21 Allergies Allergy/AdvReac Type Severity Reaction Status Date / Time No Known Allergies Allergy Verified 05/08/21 09:49 PFSH PFS Disclaimer: The information contained in this section may have been updated after the patient was seen, as this information can be updated by other users. Social History Smoking Status: Former smoker alcohol intake: current substance use type: former substance user and marijuana current occupational status: employed Travel in the last 8 weeks: None household members: other housing: house ROS Obtained: Yes All systems reviewed & no additional complaints except as documented Physical Exam General General appearance: alert and obese Head Head exam: normocephalic Eye Eye exam: Present PERRL and EOMI ENT ENT exam: Present mucous membranes moist Neck Neck exam: Present trachea midline Respiratory Respiratory exam: Absent respiratory distress Cardiovascular Cardiovascular exam: Present regular rate Abdominal Exam Abdominal exam: Present soft Extremities Exam Extremities exam: Present full ROM Neurological Exam Neurological exam: Present alert, CN II-XII intact and other (no def cts signs ); Absent motor sensory deficit Skin Skin exam: Absent rash Medical Decision Making Medical Records Medical records reviewed: Yes I reviewed the patient's medical records. Derrick Inquiry Pt receiving controlled substance: No Vital Signs: 07/01/22 05:00 Temperature 98.2 F Temperature Source Oral Pulse Rate [Left] 84 Respiratory Rate 15 Blood Pressure [Right Arm] 165/121 H Blood Pressure Mean [Right Arm] 135 02 Sat by Pulse Oximetry 97 Oxygen Delivery Method Room Air Lab Data Lab results reviewed: Yes I reviewed the patient's lab results. Lab Results 07/01/22 05:13: WBC 8.5, RBC 5.83, Hgb 16.6, Hct 51.1, MCV 87.6, MCH 28.5, MCHC 32.5, RDW 13.6, Plt Count 245, MPV 8
[2022-07-01 06:49] VITALS: BP 145/109; PULSE 76; O2SAT 99
--- NOTE | 2022-07-01 06:49 | PC.NURSE ---
Dr. Mota at [facility] speaking with pt
[2022-07-01 07:04] VITALS: BP 136/106; PULSE 86; RESP 16; TEMP 36.8; O2SAT 99
[2022-07-01 07:27] LABS: Free T4 (Free Thyroxine) 0.99 ng/dl (0.78-2.19)
[2022-07-01 07:42] LABS: Thyroid Stimulating Hormone 1.33 uIU/mL (0.465-4.68)
== END 2022-07-01 07:08 | disposition home or self-care (01) ==
PROVIDERS: Emergency Provider Emergency Medicine
DX: R20.2 Paresthesia of skin (principal); R94.02 Abnormal brain scan; R93.7 Abnormal findings on diagnostic imaging of other parts of musculoskeletal system; R03.0 Elevated blood-pressure reading, without diagnosis of hypertension
CPT/HCPCS: 70450; 72125; 80053; 83735; 84439; 84443; 85025; 99284; 99285